=== PATIENT | female | born 1960 | race Caucasian/White ===

== ENCOUNTER 2018-01-25 12:58 | Observation (INO) ==
[2018-01-25 14:07] LABS: Baso # (Auto) 0.2 th/mm3 (0.0-0.2); Baso % (Auto) 2.3 % (0.0-2.0); Eos # (Auto) 0.1 th/mm3 (0.0-0.4); Eos % (Auto) 1.8 % (0.0-4.0); Hematocrit 41.1 % (35.0-46.0); Hemoglobin 14.3 gm/dL (11.6-15.3); Lymph # (Auto) 2.4 th/mm3 (1.0-4.8); Mean Corpuscular HGB Conc 34.7 % (32.0-36.0); Mean Corpuscular Hemoglobin 31.7 pg (27.0-34.0); Mean Corpuscular Volume 91.2 fL (80.0-100.0); Mean Platelet Volume 8.1 fL (7.0-11.0); Mono # (Auto) 0.5 th/mm3 (0.0-0.9); Mono % (Auto) 6.1 % (0.0-8.0); Neut # (Auto) 4.4 th/mm3 (1.8-7.7); Neut % (Auto) 57.8 % (16.0-70.0); Platelet Count 244 th/mm3 (150-450); White Blood Count 7.6 th/mm3 (4.0-11.0)
--- NOTE | 2018-01-25 14:26 | XR ---
EXAM DATE: 01/25/2018 2:24 PM EST AGE/SEX: 57 years / Female INDICATIONS: Chest pain. Patient states it comes and goes. CLINICAL DATA: This is the patient's initial encounter. Patient reports that signs and symptoms have been present for 2 days and indicates a pain score of 0/10. MEDICAL/SURGICAL HISTORY: None. None. COMPARISON: No prior exams available for comparison. FINDINGS: A single AP view of the chest demonstrates the lungs to be symmetrically aerated without evidence of mass, infiltrate or effusion. The cardiomediastinal contours are unremarkable. Osseous structures a re intact. CONCLUSION: No acute cardiopulmonary disease. Electronically signed by: Patrick Chang MD 01/25/2018 2:25 PM EST
[2018-01-25 14:30] LABS: Alanine Aminotransferase 43 U/L (10-53); Albumin 3.6 g/dL (3.4-5.0); Alkaline Phosphatase 100 U/L (45-117); Anion Gap 8 meq/L (5-15); Aspartate Aminotransferase 46 U/L (15-37); Blood Urea Nitrogen 9 mg/dL (7-18); Calcium 8.5 mg/dL (8.5-10.1); Carbon Dioxide 26.5 meq/L (21.0-32.0); Chloride 106 meq/L (98-107); Glomerular Filtration Rate 86 mL/min (>89); Glucose,Random 138 mg/dL (74-106); Potassium 4.3 meq/L (3.5-5.1); Sodium 140 meq/L (136-145); Total Protein 7.5 g/dL (6.4-8.2)
--- NOTE | 2018-01-25 16:43 | ED ---
HPI General Chief complaint: Chest Pain Stated complaint: Chest Pain Complaint Time Seen by Provider: 01/25/18 13:36 History of Present Illness HPI narrative: Patient is a 57-year-old female presents emergency department for evaluation of left-sided chest pain nagging radiating underneath her left breast into her left arm and up into her left neck. 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 She has a history of high cholesterol, borderline diabetes. She states she has no history of high blood pressure her blood pressure here is 171/ 80. She is a cigarette smoker fairly heavy since the age of 10. Symptoms moderate, intermittent, left chest, radiation and context as above. Related Data Home Medications Medication Instructions Recorded Confirmed levothyroxine [Synthroid] 137 mcg PO DAILY 01/25/18 01/25/18 Allergies Allergy/AdvReac Type Severity Reaction Status Date / Time No Known Allergies Allergy Verified 01/25/18 13:33 Review of Systems ROS: all other systems reviewed are negative [facility] Medical History Medical History High cholesterol (Acute) Hypothyroid (Acute) Smoker (Acute) Surgical History Surgical History History of cholecystectomy (Acute) Social History Social History Substance History: No History of Abuse Second Hand Smoke Exposure: Yes Smoking Status: Current every day smoker Tobacco Type: Cigarettes How Often Do You Have a Drink Containing Alcohol: Monthly or less Recent Travel in [facility] within the Last 8 Weeks: No Recent Out of Country Travel within the Last 8 Weeks: No Immunization History Tetanus Immunization: >5 Years Exam Narrative Exam Narrative: GENERAL: Well-developed well-nourished, overweight in no obvious distress. SKIN: Focused skin assessment warm/dry. HEAD: Atraumatic. Normocephalic. EYES: Pupils equal and round. No scleral icterus. No injection or drainage. ENT: No nasal bleeding or discharge. Mucous membranes pink and moist. NECK: Trachea midline. No JVD. CARDIOVASCULAR: Regular rate and rhythm. No murmur appreciated. 2+ medical pulses in all 4 extremities, no murmurs gallops or rubs. RESPIRATORY: No accessory muscle use. Clear to auscultation. Breath sounds equal bilaterally. GASTROINTESTINAL: Abdomen soft, non-tender, nondistended. Hepatic and splenic margins not palpable. MUSCULOSKELETAL: No obvious deformities. No clubbing. No cyanosis. No edema. NEUROLOGICAL: Awake and alert. No obvious cranial nerve deficits. Motor grossly within normal limits. Normal speech. PSYCHIATRIC: Appropriate mood and affect; insight and judgment normal. Course Initial Documented Vital Signs Temperature 98.6 F 01/25/18 13:11 Respiratory Rate 19 01/25/18 13:11 Blood Pressure 203/97 H 01/25/18 13:11 Pulse Oximetry 99 01/25/18 13:11 Last Documented Vital Signs Temperature 97.9 F 01/25/18 15:29 Pulse Rate 70 01/25/18 15:29 Respiratory Rate 17 01/25/18 15:29 Blood Pressure 171/80 H 01/25/18 15:29 Pulse Oximetry 98 01/25/18 15:29 Medical Decision Making MDM Narrative Medical decision making narrative: Patient initially reluctant to stay in chest pain center, after she is discussed with her family member she is agreeable to stay. Initial troponin EKG negative x2. The labs are reassuring., Chest x- ray negative. Medical Screen Exam Complete: Yes Emergency Medical Condition: Yes Lab Data Result diagrams: 01/25/18 13:45 01/25/18 13:45 Lab Results 01/25/18 01/25/18 01/25/18 Range/Units 13:45 13:45 15:00 WBC 7.6 (4.0-11.0) th/mm3 RBC 4.50 (4.00-5.30) mil/mm3 Hgb 14.3 (11.6-15.3) gm/dL Hct 41.1 (35.0-46.0) % MCV 91.2 (80.0-100.0) fL MCH 31.7 (27.0-34.0) pg MCHC 34.7 (32.0-36.0) % RDW 14.0 (11.6-17.2) % Plt Count 244 (150-450) th/mm3 MPV 8.1 (7.0-11.0) fL Neut % (Auto) 57.8 (16.0-70.0) % Lymph % (Auto) 32.0 (9.0-44.0) % Gilliam % (Auto) 6.1 (0.0-8.0) % Eos % (Auto) 1.8 (0.0-4.0) % Baso % (Auto) 2.3 H (0.0-2.0) % Neut # (Auto) 4.4 (1.8-7.7) th/mm3 Lymph # (Auto) 2.4 (1.0-4.8) th/mm3 Gilliam # (Auto) 0.5 (0.0-0.9) th/mm3 Eos # (Auto) 0.1 (0.0-0.4) th/mm3 Baso # (Auto) 0.2 (0.0-0.2) th/mm3 WBC Differential . Differential Comment Auto diff final Sodium 140 (136-145) meq/L Potassium 4.3 (3.5-5.1) meq/L Chloride 106 (98-107) meq/L Carbon Dioxide 26.5 (21.0-32.0) meq/L Anion Gap 8 (5-15) meq/L BUN 9 (7-18) mg/dL Creatinine 0.70 (0.50-1.00) mg/dL Estimated GFR 86 L (>89) mL/min Random Glucose 138 H (74-106) mg/dL Calcium 8.5 (8.5-10.1) mg/dL Total Bilirubin 0.2 (0.2-1.0) mg/dL AST 46 H (15-37) U/L ALT 43 (10-53) U/L Alkaline Phosphatase 100 (45-117) U/L Troponin I Less than 0.02 L Less than 0.02 L (0.02-0.05) ng/mL Total Protein 7.5 (6.4-8.2) g/dL Albumin 3.6 (3.4-5.0) g/dL Imaging Data Radiologist's impression: Chest X-Ray 01/25/18 13:36 CONCLUSION: No acute cardiopulmonary disease. Discharge Plan Discharge Disposition Patient Disposition: Discharge Home Discharge Order Discharge Orders: ED Use Only Admit Order (Routine); Ordered 01/25/18 Ordered By: Bertrand Platt Discharge Details Diagnosis: Chest pain Physicians Team ED Provider: Bertrand Platt Primary Care Provider: Vicente Monterroso Rxs /Orders / Referrals /Forms Prescriptions: No Action levothyroxine [Synthroid] 137 mcg Tablet 137 mcg PO DAILY RF: 0 Discharge Instructions Patient Printed Instructions: Chest Pain (ED) Status ED Status: Admitted Observation Patient
--- NOTE | 2018-01-25 18:09 | P.HPCA ---
History of Present Illness Primary Care Physician: Vicente Monterroso MD Chief Complaint: Chest pain History of Present Illness: 57 year old female with history of hypothyroidism, hyperlipidemia, borderline diabetes, and current smoker presents emergency room for further evaluation of nonexertional chest pain. Onset yesterday 5 p.m. while watching television. Location left anterior chest with radiation to left axilla, left side of neck, and left scapula. Characterized as pressure. Discomfort began gradually. Duration 15-20 minutes before gradually resolving. Moderate in severity. No associated symptoms of nausea, vomiting, dyspnea, or diaphoresis. No precipitating or relieving factors. No further discomfort throughout evening or upon awakening, proceeded to go to work. Chest discomfort returned around 1030 a.m., described same discomfort as night before, duration 15-20 minutes. Called PCP after second episode and was directed to ER for further evaluation. Endorses similar pain last week, although "not as bad." Denies history of hypertension, however blood pressures have ranged from sbp 170-180s dbp 80s. Stopped cholesterol medication, stating "I just didn't want to take anymore." No recent illness, fever, injury, or increase in normal chronic cough or sputum production. No current chest pain. Reports tenderness to left anterior chest with palpation. No particular movement or position makes pain better or worse. Past cardiac testing None Social history Known hyperlipidemia-not taking medication. Borderline diabetic. No known hypertension. Lifelong smoker. Currently smokes 1/2 pack daily. No alcohol or recreational drug use. Endorses sedentary lifestyle secondary to arthritis in knees. . Family history Noncontributory for early onset cardiovascular disease - Diagnosis (1) Chest pain of uncertain etiology (2) Hypertension (3) Hyperlipidemia (4) Tobacco use (5) Borderline type 2 diabetes mellitus (6) Right carotid bruit Review of Systems All other systems reviewed negative except as stated in HPI PMFSH - History History Provided By: Patient - Medical History Medical History: Medical History (Last Updated 01/25/18 @ 17:58 by OC Brown) Borderline type 2 diabetes mellitus High cholesterol Hypothyroid Smoker - Surgical History Surgical History: Surgical History (Last Reviewed 01/25/18 @ 17:58 by OC Brown) History of cholecystectomy - Tobacco History Second Hand Smoke Exposure: Yes Tobacco Use In Past 30 Days: Yes Smoking Status: Current every day smoker Tobacco Type: Cigarettes Packs Per Day: 0.5 Years Smoked: 45 - Alcohol History How Often Do You Have a Drink Containing Alcohol: Monthly or less - Substance Use History Substance History: No History of Abuse - Travel History Recent Travel in the [place] Within the Last 8 Weeks: No Recent Travel Out of the Country Within the Last 8 Weeks: No - Immunization History Tetanus Immunization: >5 Years Medications and Allergies Active Medications: Active Medications Acetaminophen (Tylenol) 500 mg PO Q4H PRN PRN Reason: HEADACHE Nitroglycerin (Nitrostat Sl) 0.4 mg SL Q5M PRN PRN Reason: CHEST PAIN Ondansetron HCl (Zofran Inj) 4 mg IV.PUSH Q6H PRN PRN Reason: NAUSEA Sodium Chloride (Ns Flush) 2 ml IV.FLUSH UNSCH PRN PRN Reason: FLUSH AFTER USING IV ACCESS Last Admin: 01/25/18 13:52 Dose: 2 ml Sodium Chloride (Ns Flush) 2 ml IV.FLUSH BID KILO Allergies Allergy/AdvReac Type Severity Reaction Status Date / Time No Known Allergies Allergy Verified 01/25/18 13:33 Home Medications Medication Instructions Recorded Confirmed Type levothyroxine [Synthroid] 137 mcg PO DAILY 01/25/18 01/25/18 History Exam Vital signs: Vital Signs 01/25/18 13:11 01/25/18 13:36 01/25/18 14:48 Temperature 98.6 F 98.1 F 97.7 F Pulse Rate 95 H 96 H Respiratory Rate 19 16 17 Blood Pressure 203/97 H 186/81 H 187/83 H Pulse Oximetry 99 97 99 01/25/18 15:29 01/25/18 16:58 Temperature 97.9 F 97.7 F Pulse Rate 70 68 Respiratory Rate 17 16 Blood Pressure 171/80 H 168/86 H Pulse Oximetry 98 99 Intake & Output 01/24/18 01/25/18 01/25/18 18:59 06:59 18:59 Weight 108.862 kg Narrative: GENERAL: Alert WN, WD, NAD, pleasant, obese, female who appears older than stated age HEAD: NC, AT EYES: Sclera clear, conjunctiva without injection, pupils equal and round ENT: Mucous membranes pink and moist, poor dictation NECK: Supple, no masses, trachea midline CV: RRR, without murmur, rub, gallop, no JVD, S1-S2. Faint right carotid bruit. Point tenderness left anterior chest. RESP: Diminished lungs throughout bilateral, no crackles, wheeze, or rhonchi, symmetrical chest rise, nonlabored, able to speak in full sentences ABD: Soft, NT, ND, no masses, positive bowel tones, obese BACK: No scoliosis EXT: Pulses +2x4, no dependent edema MS: Normal tone x4 extremities, nontender, no obvious deformities, full range of motion, no reproducible pain during passive cervical and left arm ROM NEURO: Motor strength 5/5 PSYCH: A+O x3, pleasant affect, appropriate speech, mood, insight and judgment SKIN: Normal turgor, normal texture, no lesions, no rashes, decreased hair distribution, tattoos Results 01/25/18 13:45 01/25/18 13:45 Cardiac Enzymes 01/25/18 01/25/18 Range/Units 13:45 15:00 AST 46 H (15-37) U/L Troponin I Less than 0.02 L Less than 0.02 L (0.02-0.05) ng/mL CBC 01/25/18 Range/Units 13:45 WBC 7.6 (4.0-11.0) th/mm3 RBC 4.50 (4.00-5.30) mil/mm3 Hgb 14.3 (11.6-15.3) gm/dL Hct 41.1 (35.0-46.0) % Plt Count 244 (150-450) th/mm3 Neut # (Auto) 4.4 (1.8-7.7) th/mm3 Lymph # (Auto) 2.4 (1.0-4.8) th/mm3 Elk # (Auto) 0.5 (0.0-0.9) th/mm3 Eos # (Auto) 0.1 (0.0-0.4) th/mm3 Baso # (Auto) 0.2 (0.0-0.2) th/mm3 Comprehensive Metabolic Panel 01/25/18 Range/Units 13:45 Sodium 140 (136-145) meq/L Potassium 4.3 (3.5-5.1) meq/L Chloride 106 (98-107) meq/L Carbon Dioxide 26.5 (21.0-32.0) meq/L BUN 9 (7-18) mg/dL Creatinine 0.70 (0.50-1.00) mg/dL Calcium 8.5 (8.5-10.1) mg/dL AST 46 H (15-37) U/L ALT 43 (10-53) U/L Alkaline Phosphatase 100 (45-117) U/L Total Protein 7.5 (6.4-8.2) g/dL Albumin 3.6 (3.4-5.0) g/dL Intake and Output 01/25/18 01/25/18 01/25/18 06:59 14:59 22:59 Other: Weight 108.862 kg Patient Weight 01/26/18 06:59 Weight 108.862 kg - Imaging and Cardiology Imaging: Impressions Chest X-Ray 01/25/18 13:36 CONCLUSION: No acute cardiopulmonary disease. EKG interpretations - EKG EKG results cardiology: sinus rhythm (left axis), normal QRS, normal ST/T Caprini VTE Risk Assessment Caprini VTE Risk Assessment: No/Low Risk (score <= 1) Caprini Risk Assessment Model: Point Value = 1 Point Value = 2 Point Value = 3 Point Value = 5 Age 41-60 Minor surgery BMI > 25 kg/m2 Swollen legs Varicose veins or History of unexplained or recurrent spontaneous Oral contraceptives or hormone replacement Sepsis (< 1 month) Serious lung disease, including pneumonia (< 1 month) Abnormal pulmonary function Acute myocardial infarction Congestive heart failure (< 1 month) History of inflammatory bowel disease Medical patient at bed rest Age 61-74 Arthroscopic surgery Major open surgery (> 45 min) Laparoscopic surgery (> 45 min) Malignancy Confined to bed (> 72 hours) Immobilizing plaster cast Central venous access Age >= 75 History of VTE Family history of VTE Factor V Leiden Prothrombin [id number] Lupus anticoagulant Anticardiolipin antibodies Elevated serum homocysteine Heparin-induced thrombocytopenia Other congenital or acquired thrombophilia Stroke (< 1 month) Elective arthroplasty Hip, pelvis, or leg fracture Acute spinal cord injury (< 1 month) Prophylaxis Regimen: Total Risk Factor Score Risk Level Prophylaxis Regimen 0-1 Low Early ambulation 2 Moderate Order ONE of the following: *Sequential Compression Device (SCD) *Heparin 5000 units SQ BID 3-4 Higher Order ONE of the following medications: *Heparin 5000 units SQ TID *Enoxaparin/Lovenox 40 mg SQ daily (WT < 150 kg, CrCl > 30 mL/min) *Enoxaparin/Lovenox 30 mg SQ daily (WT < 150 kg, CrCl > 10-29 mL/min) *Enoxaparin/Lovenox 30 mg SQ BID (WT < 150 kg, CrCl > 30 mL/min) AND/OR *Sequential Compression Device (SCD) 5 or more Highest Order ONE of the following medications: *Heparin 5000 units SQ TID (Preferred with Epidurals) *Enoxaparin/Lovenox 40 mg SQ daily (WT < 150 kg, CrCl > 30 mL/min) *Enoxaparin/Lovenox 30 mg SQ daily (WT < 150 kg, CrCl > 10-29 mL/min) *Enoxaparin/Lovenox 30 mg SQ BID (WT < 150 kg, CrCl > 30 mL/min) AND *Sequential Compression Device (SCD) Assessment and Plan - Assessment (1) Chest pain of uncertain etiology Code(s): R07.89 - Other chest pain Status: Acute Plan: Admitted to chest pain center. Rule out ACS with 3 sets of EKGs, cardiac enzymes, monitor on telemetry overnight. Will be seen and evaluated by Dr. Mamta Alfredo morning. Discussed if ACS ruled out, hides and skins colorer may proceed with cardiac stress testing in a.m. If cardiac testing ordered, Lexiscan would be required due to reported inability to walk on treadmill. Further position to follow after evaluation by hides and skins colorer. (2) Hypertension Code(s): I10 - Essential (primary) hypertension Status: Acute Plan: Continue to monitor. Amlodipine 5 mg p.o. now. Encouraged tobacco cessation, weight lost, and sodium restriction. (3) Hyperlipidemia Code(s): E78.5 - Hyperlipidemia, unspecified Status: Chronic Plan: Encouraged follow up with primary care provider, lifestyle modifications, and reconsidering taking previously prescribed statin therapy. (4) Tobacco use Code(s): Z72.0 - Tobacco use Status: Chronic Plan: Strongly encouraged and stressed importance of tobacco cessation. Instructed to quit smoking. Discussed in length and made aware of Tobacco Free [place] program available. (5) Borderline type 2 diabetes mellitus Code(s): R73.03 - Prediabetes Status: Chronic Plan: Random glucose 138. Instructed to keep follow up appointment with primary care provider and to complete fasting laboratory studies ordered by PCP. (6) Right carotid bruit Code(s): R09.89 - Other specified symptoms and signs involving the circulatory and respiratory systems Status: Acute Plan: Faint right carotid bruit. Follow up with primary care provider. Tobacco cessation reinforced. (2) Hypertension Qualifiers: Hypertension type: unspecified Qualified Code(s): I10 - Essential (primary) hypertension (3) Hyperlipidemia Qualifiers: Hyperlipidemia type: unspecified Qualified Code(s): E78.5 - Hyperlipidemia, unspecified
[2018-01-25 18:42] LABS: Creatine Kinase 147 U/L (26-192)
[2018-01-25] MEDS ORDERED: amLODIPine 5 MG Tablet PO ONE (19:15)
[2018-01-25] MEDS: Acetaminophen 500 MG Tablet PO PRN (19:49)
[2018-01-25 23:12] LABS: Creatine Kinase 137 U/L (26-192)
[2018-01-26] MEDS ORDERED: Levothyroxine 112 MCG Tablet PO SCH (06:00)
--- NOTE | 2018-01-26 09:10 | ECG ---
Date Performed: 01/25/2018 Time Performed: 21:10:29 PTAGE: 57 years EKG: Sinus rhythm BORDERLINE LEFT AXIS DEVIATION MODERATE T-WAVE ABNORMALITY, CONSIDER LATERAL ISCHEMIA ABNORMAL ECG S lorin PREVIOUS TRACING , no significant change noted PREVIOUS TRACIN01/25/2018 18.23 DOCTOR: Mamta Alfredo Interpretating Date/Time 01/26/2018 09:10:07
--- NOTE | 2018-01-26 09:11 | ECG ---
Date Performed: 01/25/2018 Time Performed: 13:40:32 PTAGE: 57 years EKG: Sinus rhythm PATTERN CONSISTENT WITH PULMONARY DISEASE INFERIOR MYOCARDIAL INFARCTION ABNORMAL ECG NO PREVIOUS TRACING DOCTOR: Mamta Alfredo Interpretating Date/Time 01/26/2018 09:11:15
--- NOTE | 2018-01-26 09:11 | ECG ---
Date Performed: 01/25/2018 Time Performed: 18:23:21 PTAGE: 57 years EKG: Sinus rhythm WITH SINUS ARRHYTHMIA WITH SHORT MN INTERVAL BORDERLINE LEFT AXIS DEVIATION BORDERLINE ECG Since PREVIOUS TRACING , no significant change noted PREVIOUS TRACIN01/25/2018 15.26 DOCTOR: Mamta Alfredo Interpretating Date/Time 01/26/2018 09:10:31
--- NOTE | 2018-01-26 09:11 | ECG ---
Date Performed: 01/25/2018 Time Performed: 15:26:15 PTAGE: 57 years EKG: Sinus rhythm MARKED LEFT AXIS DEVIATION PATTERN CONSISTENT WITH PULMONARY DISEASE ABNORMAL ECG Since PREVIOUS TRACING , no significant change noted PREVIOUS TRACIN01/25/2018 13.40 DOCTOR: Mamta Alfredo Interpretating Date/Time 01/26/2018 09:11:06
[2018-01-26] MEDS ORDERED: Regadenoson Inj 0.4 MG/5 ML Syringe IV.PUSH ONE (11:31)
[2018-01-26] MEDS: Acetaminophen 500 MG Tablet PO PRN (12:22)
--- NOTE | 2018-01-26 13:09 | NM ---
EXAM DATE: 01/26/2018 12:27 PM EST AGE/SEX: 57 years / Female INDICATIONS:Angina. . Left sided chest pain. CLINICAL DATA: This is the patient's initial encounter. Patient reports that signs and symptoms have been present for 1 day and indicates a pain score of 2/10. MEDICAL/SURGICAL HISTORY: Diabetes mellitus type II. Hypothyroidism. Cholecystectomy. COMPARISON: No prior exams available for comparison. DOSE: 11 mCi Tc 99m Myoview at rest 35 mCi [id number] at stress 0.4 mg Lexiscan STRESS SYMPTOMS: None. EJECTION FRACTION: 70 % TECHNIQUE: The patient underwent pharmacologic stress with infusion of prescribed dose. Continuous ECG tracing was monitored during stress. Gated SPECT imaging was performed after stress and conventi onal SPECT imaging was performed at rest. The examination was performed on a SPECT/CT scanner, both attenuation and non-corrected datasets were reviewed. FINDINGS: Distribution: The maximum perfused segment at stress is in the anterior wall. Perfusion Study: The pattern of perfusion at stress is within normal limits. There is a summed st ress score of 0. Gated Study: There are intact wall motion and wall thickening without hypokinetic or dyskinetic segm ents. The ejection fraction is calculated at 70%. RISK CATEGORY: Low (<1% Annual Motality Rate) CONCLUSION: 1. Normal wall motion and calculated ejection fraction. 2. No fixed or reversible wall defects to suggest ischemia or infarction. Electronically signed by: Patrick Chang MD 01/26/2018 1:08 PM EST
[2018-01-26 13:37] VITALS: BP 135/73; RESP 18; TEMP 99; O2SAT 98
[2018-01-26 15:34] VITALS: PULSE 101
--- NOTE | 2018-01-26 16:04 | TR ---
Date Performed: 01/26/2018 Time Performed: 11:12:46 DOCTOR: Mamta Alfredo DRUG LIST: CLINICAL HISTORY: REASON FOR TEST: REASON FOR ENDING: OBSERVATION: CONCLUSION: Lexiscan stress test was performed under standard four minute protocol. Radionuclid e was injected one minute prior to ending the test. No electrocardiographic abormalities were present to suggest ischemia. Nuclear imaging and interpretation are pending. COMMENTS: Lexiscan stress test was performed under standard four minute protocol. Radionuclide was injected one minute prior to ending the test. No electrocardiographic abormalities were present t o suggest ischemia. Nuclear imaging and interpretation are pending.
== END 2018-01-26 18:23 | disposition home or self-care (01) ==
LOC: NEDA 12:58 → NEPC 12:58 → NEPHCDU 18:18
PROVIDERS: ADMIT Internal Medicine Cardiovascular Disease; ATTEND Internal Medicine Cardiovascular Disease